=== PATIENT | female | born 1985 | race Caucasian/White ===

== ENCOUNTER 2016-08-03 12:58 | Inpatient (IN) | payer OTHER ==
[~2016-08-03] VITALS: Ht 167.6 cm; Wt 131.2 kg
[2016-08-03 13:05] VITALS: Ht 167.6 cm; Wt 131.2 kg
[2016-08-03 13:06] VITALS: BP 144/88; PULSE 106; RESP 18
--- NOTE | 2016-08-03 14:18 | RADRPT ---
PROCEDURE: US OB. CLINICAL INDICATION: SROM , pain TECHNIQUE: Transabdominal views of the pelvis are available for review. COMPARISON: No prior studies are available for comparison. FINDINGS: There is a single intrauterine gestation in a vertex position. The heart rate is present at 137 bpm. The placenta is anterior. The PAPA measures 9.4 cm. RPTAT: AA IMPRESSION: Normal PAPA. .Ata Chilel MD, MD Date Time Electronically viewed and signed by .Ata Chilel MD, MD on 08/03/2016 14:18 .S/
[2016-08-03 15:13] LABS: ADD SCAN DIFF NO
[2016-08-03 15:27] LABS: INR 0.92; PROTIME 12.4 Sec (12.2-14.2)
[2016-08-03 15:28] LABS: PARTIAL THROMBOPLASTIN TIME 26.2 Sec (25.0-35.0)
--- NOTE | 2016-08-03 15:35 | HP ---
Date/Time of Note Date/Time of Note DATE: 08/03/16 TIME: 15:32 OB - History Hx of Present Free Text/Dictation 31yo G1 at 39+1 presented to triage c/o leakage of fluid starting at 0845 followed by painful UCs at around 1000. Pt reports normal FM. States she has had some vaginal bleeding since exam in clinic. Denies CALDERON, visual changes or RUQ pain. PROCEDURE: US OB. CLINICAL INDICATION: SROM , pain TECHNIQUE: Transabdominal views of the pelvis are available for review. COMPARISON: No prior studies are available for comparison. FINDINGS: There is a single intrauterine gestation in a vertex position. The heart rate is present at 137 bpm. The placenta is anterior. The PAPA measures 9.4 cm. RPTAT: AA IMPRESSION: Normal PAPA. Estimated Due Date: Aug 09, 2016 : 1 Care: Good Care Obstetrical Complications: None Medical Complications: None Past Family/Social History * Past Medical, Surgical, Family and Obstetric Histories reviewed from chart. Blood Type: O+ Rubella: unknown (unclear writing on record) GBS Status: Negative HBsAG: Negative OB Admission Exam Vital Signs Vital Signs Vital Signs Date Time Temp Pulse Resp B/P Pulse Ox O2 Delivery O2 Flow Rate FiO2 08/03/16 13:06 98.2 106 18 144/88 Room Air BPs 140s/70s-80s 116/58 Physical Exam HEENT: WNL Heart: Rhythm Normal Lungs: Clear Abdomen: WNL Extremities: Normal Reflexes: Normal (2+) Cervical Dilatation: 1cm Effacement: Other (40%) Station: -3 Membranes: Ruptured (nitrazine positive, ROM plus positive) Amniotic Fluid: Clear Heart Rate: 130's Accelerations: Accelerations Present Decelerations: Variable Decelerations (to 110s x1) Varibility: Moderate Contractions on Admission: < 5 Minutes Apart (q4-6 minutes) Intensity: Mild OB Assessment/Plan Reason for admission: rupture of membranes Other Assessment: Term PROM Early labor Elevated BPs Plan: Induction Induction Method: per Pitocin Protocol Other plan: 1)Labor: Begin IOL in the setting of term PROM 2)FWB: Reassuring, CEFM 3)Elevated BPs: Given mild range BPs, no symptoms and no e/o Preeclampsia, will defer Magnesium Sulfate at this point and continue monitoring BPs and sxs 4)ID: ROM x7Hrs, afebrile. Minimize SVEs to decrease infectious risk. GBS negative, ppx not indicated. 5)Pain: Meds prn Plan for IOL discussed with pt as well as expectations for induction. Questions answered to patient and partner's satisfaction. Dr. Obrien aware of plan to admit and to induce SANA CAIN MD Aug 03, 2016 15:35
[2016-08-03 15:44] LABS: BASOPHILS % 0.2 % (0.0-2.0); EOSINOPHILS # 0.1 10^3/ul (0.0-0.5); EOSINOPHILS % 0.8 % (0.0-7.0); HEMATOCRIT 39.2 % (37.0-47.0); HEMOGLOBIN 13.2 g/dl (12.0-16.0); LYMPHOCYTES % 17.7 % (15.0-51.0); MEAN CORPUSCULAR HEMOGLOBIN 29.3 pg (29.0-33.0); MEAN CORPUSCULAR HGB CONC 33.7 g/dl (32.0-37.0); MEAN CORPUSCULAR VOLUME 87.1 fl (82.0-101.0); MEAN PLATELET VOLUME 10.1 fl (7.4-10.4); MONOCYTE # 0.7 10^3/ul (0.3-0.9); MONOCYTES % 6.4 % (0.0-11.0); NEUTROPHIL # 8.3 10^3/ul (1.6-7.5); NEUTROPHILS % 74.2 % (39.0-77.0); PLATELET COUNT 238 10^3/UL (140-415); RED CELL DISTRIBUTION WIDTH 15.6 % (11.5-14.5); WHITE BLOOD COUNT 11.2 10^3/ul (4.8-10.8)
[2016-08-03 15:45] LABS: ADD UMIC YES; URINE BILIRUBIN (Dip) NEGATIVE (NEGATIVE); URINE BLOOD (Dip) 3+ (NEGATIVE); URINE GLUCOSE (Dip) NEGATIVE (NEGATIVE); URINE KETONES (Dip) NEGATIVE (NEGATIVE); URINE LEUKOCYTE ESTERASE (Dip) 1+ (NEGATIVE); URINE NITRITE (Dip) NEGATIVE (NEGATIVE); URINE TOTAL PROTEIN (Dip) NEGATIVE (NEGATIVE); URINE UROBILINOGEN (Dip) 0.2 E.U./dL (0.1-1.0)
[2016-08-03 15:53] LABS: URINE COLOR YELLOW (YELLOW)
[2016-08-03 15:56] LABS: ALBUMIN 3.3 g/dl (3.3-4.9)
[2016-08-03 15:57] LABS: POTASSIUM 4.3 mmol/L (3.5-5.1)
[2016-08-03 15:59] LABS: CREATININE 0.72 mg/dl (0.44-1.00); TOTAL PROTEIN 6.6 g/dl (6.1-8.1)
[2016-08-03 16:00] LABS: CALCIUM 9.8 mg/dl (8.4-10.2)
[2016-08-03] MEDS: OXYTOCIN 30 UNITS/LR 500 ML IV SCH ×2 (16:00→20:00)
[2016-08-03] MEDS ORDERED: LIDOCAINE 1% (MPF) 30 ML INJ INJ PRN (16:00)
[2016-08-03] MEDS ORDERED: OXYTOCIN 30 UNITS/LR 500 ML IV PRN (16:00)
[2016-08-03] MEDS ORDERED: CARBOPROST 250 MCG INJ IM PRN (16:00)
[2016-08-03] MEDS ORDERED: LACTATED RINGER'S 1,000 ML IV PRN (16:00)
[2016-08-03] MEDS ORDERED: MISOPROSTOL 200 MCG TAB PR PRN (16:00)
[2016-08-03] MEDS ORDERED: METHYLERGONOVINE 0.2 MG INJ IM PRN (16:00)
[2016-08-03] MEDS ORDERED: OXYTOCIN 30 UNITS/LR 500 ML IV SCH (16:00)
[2016-08-03 16:01] LABS: BACTERIA,URINE FEW; SQUAMOUS EPITHELIAL CELL,UR MANY; URINE RBCS 25-50 /HPF (0)
--- NOTE | 2016-08-03 16:43 | TRIAGE ---
OB Triage Datetime Report Generated by CPN: 08/03/2016 16:43 Datetime: 08/03/2016 16:29 Assessment Type: Admission Assessment Vaginal Bleeding: None Maternal Assessment Level of Consciousness: Fully Conscious DTR's/Clonus: DTRs 2+; No Clonus Headache: Denies Blurred Vision: No Respiratory Effort: Unlabored; Regular Rhythm; Equal Expansion Breath Sounds, Left: Clear and Equal Breath Sounds, Right: Clear and Equal Nausea/Vomiting: Denies RUQ Epigastric Pain: Denies Lower Extremities Edema: Bilateral Lower Extremities Degree: 2+ Upper Extremities Edema: Bilateral Upper Extremities Degree: 2+ Facial Edema: None Fall Risk Assessment History of Falling: (0) No Secondary Diagnosis: (0) No Ambulatory Aid: (0) Bedrest/Nurse Assist IV Therapy: (0) No Gait: (0) Normal/Bedrest/Immobile Mental Status: (0) Oriented to Own Ability Labor Evaluation Frequency: 4-6 Duration (sec)2399: 70-120 Quality: Mild Pattern: Normal: <= 5 Contractions in 10 Minutes Resting Tone Peak: Relaxed Pain Assessment Pain Presence: Intermittent Pain Type: Cramping Pain Location: Abdomen Membrane Status: Ruptured Membranes Ruptured Date/Time: 08/03/2016 08:45 Membranes Rupture Method: Spontaneous Amniotic Fluid Color: Clear Amniotic Fluid Amount: Small Amniotic Fluid Odor: Normal ROM Test Kit: Positive Datetime: 08/03/2016 15:42 Labor Evaluation Frequency: 3-6 Monitor Mode: External Duration (sec)2399: 60-120 Quality: Moderate Pattern: Normal: <= 5 Contractions in 10 Minutes Resting Tone Peak: Relaxed Datetime: 08/03/2016 15:35 Labor Evaluation Frequency: 3-4 Monitor Mode: External Duration (sec)2399: 60-80 Quality: Mild Pattern: Normal: <= 5 Contractions in 10 Minutes Resting Tone Peak: Relaxed Heart Rate FHR Baseline Rate: 130 Monitor Mode: External US FHR Baseline Changes: No Baseline Change Variability: Moderate 6-25 bpm Accelerations: 15X15 Decelerations: None Category: Category I Datetime: 08/03/2016 14:28 Labor Evaluation Frequency: IRREG Monitor Mode: External Duration (sec)2399: 70-80 Quality: Mild Pattern: Normal: <= 5 Contractions in 10 Minutes Resting Tone Peak: Relaxed Heart Rate FHR Baseline Rate: 140 Monitor Mode: External US FHR Baseline Changes: No Baseline Change Variability: Moderate 6-25 bpm Accelerations: 15X15 Decelerations: None Category: Category I Datetime: 08/03/2016 13:26 Labor Evaluation Frequency: 10-12 Monitor Mode: External Duration (sec)2399: 70 Quality: Mild Pattern: Normal: <= 5 Contractions in 10 Minutes Resting Tone Peak: Relaxed Heart Rate FHR Baseline Rate: 140 Monitor Mode: External US FHR Baseline Changes: No Baseline Change Variability: Moderate 6-25 bpm Accelerations: 15X15 Decelerations: None Category: Category I Pain Assessment Pain Presence: None/Denies Datetime: 08/03/2016 13:21 Vaginal Exam Dilatation (cms): 1.0 Effacement (%): 40 Station: -3 Exam By: MJ Datetime: 08/03/2016 13:20 Nitrazine: Negative Datetime: 08/03/2016 13:09 Stage of : OB Triage Time of Arrival: 08/03/2016 16:13 EGA: 39.1 Arrived By: Ambulatory Arrived From: Home Maternal Assessment Level of Consciousness: Fully Conscious DTR's/Clonus: DTRs 2+; No Clonus Headache: Denies Blurred Vision: No Respiratory Effort: Unlabored; Regular Rhythm; Equal Expansion Breath Sounds, Left: Clear and Equal Breath Sounds, Right: Clear and Equal Nausea/Vomiting: Denies RUQ Epigastric Pain: Denies Lower Extremities Edema: Bilateral Lower Extremities Degree: None Upper Extremities Edema: Bilateral Upper Extremities Degree: None Facial Edema: None Temperature Route: Oral Fall Risk Assessment History of Falling: (0) No Secondary Diagnosis: (0) No Ambulatory Aid: (0) Bedrest/Nurse Assist IV Therapy: (0) No Gait: (0) Normal/Bedrest/Immobile Datetime: 08/03/2016 13:07 Time of Arrival: 08/03/2016 12:54 Arrived By: Ambulatory Arrived From: Home Chief Complaint: UCS WITH RUPTURE OF MEMBRANES Movement: Present Contractions: Irregular Time Contractions Began: 08/03/2016 09:48 Contractions: 3-8 Rupture of Membranes: Ruptured Vaginal Bleeding: None Vaginal Discharge: Denies Recent Sexual Intercouse: Denies Abdominal Trauma: Not Applicable Patient Complaints: Contractions; Other Additional Patient Complaints: SROM AT 0845 Time Provider Notified: 08/03/2016 13:30 Provider Notified: RICHIE Initial Plan: MONITOR, V/S MONITOR, NOTIFIY OB FOR FURTHER ORDERS
[2016-08-03] MEDS ORDERED: BUTORPHANOL 2 MG INJ IV PRN (17:00)
[2016-08-03] MEDS: LACTATED RINGER'S 1,000 ML IV SCH (17:12)
[2016-08-03 17:24] LABS: URIC ACID 4.7 mg/dl (3.1-7.9)
[2016-08-03] MEDS ORDERED: AMPICILLIN 2 GM/NS (PMX) 100 ML ONE (21:19)
[2016-08-03] MEDS ORDERED: AMPICILLIN 2 GM/NS (PMX) 100 ML IVPB ONE (21:30)
[2016-08-03] MEDS ORDERED: FENTAnyl 2MCG/ML-ROPIV 0.2% 100 ML ONE (22:29)
[2016-08-03] MEDS ORDERED: TERBUTALINE 1 ML ONE (23:40)
[2016-08-04] MEDS: LACTATED RINGER'S 1,000 ML IV SCH ×4 (00:49→17:34)
[2016-08-04] MEDS: AMPICILLIN 1 GM/NS (PMX) 50 ML IVPB SCH ×4 (00:52→13:00)
[2016-08-04] MEDS ORDERED: ONDANSETRON 4 MG INJ ONE (02:46)
[2016-08-04] MEDS ORDERED: ONDANSETRON 4 MG INJ IV PRN ×3 (03:30→14:30)
[2016-08-04] MEDS: OXYTOCIN 30 UNITS/LR 500 ML IV SCH ×3 (04:00→08:00)
[2016-08-04] MEDS ORDERED: DIPHENHYDRAMINE 50 MG INJ IV PRN ×2 (04:00→14:30)
[2016-08-04] MEDS ORDERED: NALOXONE (0.4 MG/ML) INJ IV PRN ×2 (04:00→14:30)
[2016-08-04] MEDS: FENTAnyl 2MCG/ML-ROPIV 0.2% 100 ML BAG EPI SCH ×2 (04:22→11:10)
[2016-08-04] MEDS ORDERED: LACTATED RINGER'S 1,000 ML IV ONE (11:48)
[2016-08-04] MEDS ORDERED: CITRIC ACID/NA CITRATE 30 ML CUP ONE (11:50)
[2016-08-04] MEDS ORDERED: FENTAnyl 50 MCG/ML VIAL ONE (11:58)
[2016-08-04] MEDS ORDERED: morphine SULFATE/PF (10 MG/10 ML) INJ ONE (11:58)
[2016-08-04] MEDS ORDERED: CEFAZOLIN 1 GM INJ ONE (11:59)
[2016-08-04] MEDS ORDERED: CEFAZOLIN 2 GM/50 ML (PMX) 50 ML IV SCH (12:00)
[2016-08-04] MEDS ORDERED: ONDANSETRON 4 MG INJ IV ONE (12:00)
[2016-08-04] MEDS ORDERED: CITRIC ACID/NA CITRATE 30 ML CUP PO ONE (12:00)
[2016-08-04] MEDS ORDERED: CHLOROPROCAINE 3% (MPF) 20 ML INJ ONE (12:00)
[2016-08-04] MEDS ORDERED: METOCLOPRAMIDE 10 MG INJ ONE (12:42)
[2016-08-04] MEDS ORDERED: BUPIVACAINE 0.25% (MPF) 30 ML INJ ONE (12:50)
[2016-08-04] MEDS: IBUPROFEN 800 MG TAB PO SCH (14:00)
[2016-08-04] MEDS ORDERED: CARBOPROST 250 MCG INJ IM PRN (14:00)
[2016-08-04] MEDS ORDERED: OXYCODONE/ACETAMINOPHEN (5/325) TAB PO PRN ×2 (14:00)
[2016-08-04] MEDS ORDERED: MISOPROSTOL 200 MCG TAB PR PRN (14:00)
[2016-08-04] MEDS ORDERED: OXYTOCIN 30 UNITS/LR 500 ML IV PRN (14:00)
[2016-08-04] MEDS ORDERED: METHYLERGONOVINE 0.2 MG INJ IM PRN (14:00)
[2016-08-04] MEDS ORDERED: LANOLIN 7 GM TUBE TOP PRN (14:00)
[2016-08-04] MEDS ORDERED: PROCHLORPERAZINE 10 MG INJ IV PRN (14:30)
[2016-08-04] MEDS ORDERED: morphine 2 MG INJ IV PRN ×2 (14:30)
[2016-08-04] MEDS: KETOROLAC 30 MG INJ IV PRN ×2 (15:04→21:49)
[2016-08-04 17:00] VITALS: BP 137/77; PULSE 89; RESP 18
[2016-08-04 19:45] VITALS: BP 113/61; PULSE 92; RESP 18
[2016-08-04 23:54] VITALS: BP 115/43; PULSE 102; RESP 16
[2016-08-05] MEDS: LACTATED RINGER'S 1,000 ML IV SCH ×2 (02:04→10:29)
[2016-08-05 03:51] VITALS: BP 122/69; PULSE 104; RESP 18
[2016-08-05] MEDS: KETOROLAC 30 MG INJ IV PRN ×2 (05:29→12:10)
[2016-08-05 06:56] LABS: ADD SCAN DIFF NO
[2016-08-05 07:10] LABS: BASOPHILS % 0.1 % (0.0-2.0); EOSINOPHILS # 0.1 10^3/ul (0.0-0.5); EOSINOPHILS % 0.4 % (0.0-7.0); HEMATOCRIT 33.1 % (37.0-47.0); LYMPHOCYTES # 2.1 10^3/ul (0.8-2.9); MEAN CORPUSCULAR HEMOGLOBIN 29.6 pg (29.0-33.0); MEAN CORPUSCULAR HGB CONC 33.2 g/dl (32.0-37.0); MEAN CORPUSCULAR VOLUME 89.2 fl (82.0-101.0); MONOCYTE # 0.8 10^3/ul (0.3-0.9); MONOCYTES % 5.9 % (0.0-11.0); NEUTROPHIL # 10.9 10^3/ul (1.6-7.5); NEUTROPHILS % 77.9 % (39.0-77.0); PLATELET COUNT 192 10^3/UL (140-415); RED BLOOD COUNT 3.71 10^6/ul (4.20-5.40); RED CELL DISTRIBUTION WIDTH 15.9 % (11.5-14.5)
[2016-08-05 07:50] VITALS: BP 118/66; PULSE 101; RESP 18
[2016-08-05] MEDS: IBUPROFEN 800 MG TAB PO SCH ×2 (14:00→21:42)
[2016-08-05 15:54] VITALS: BP 126/77; PULSE 91; RESP 18
[2016-08-05 19:50] VITALS: BP 107/58; PULSE 94; RESP 21
--- NOTE | 2016-08-05 22:31 | QN ---
Documentation Comment On 08/04 , follow-up with the nurse early in the morning indicated the pt was 6-7 cm dilated. Then at 0730 she was 8 cm dilated and pitocin was reinitiated, having been stopped earlier. At 11 AM the pt was still the same and the head was still high and the membranes had been ruptured now x 28 hours and the heart tracing was beginning to get flat with decreased variability. I came in to evaluate the pt and after reviewing the tracing and examining the pt and speaking to the patient decided to proceed to a primary for failure to progress and non-reassuring heart tracing. Consent was signed and patient was prepped and brought to the OR. DANILO QUIROZ MD Aug 05, 2016 22:31
--- NOTE | 2016-08-05 22:31 | QN ---
Documentation Comment POD #1 S/P primary C/S. Pt in good spirits.Excellent pain management. Was only given clear liquids for dinner and has crackers now? Struggled with breast feeding even with the help of the proposal consultant and the nipple nation didn't work so has to pump and then feed the baby. Is also supplementing for now as the baby was getting very hungry while they were trying to figure out the . T=98.6. BP 107/58. Fundus firm. Incision clean,dry and intact. Loachia moderate. Extremities 3+ edema, NT. WBC 14.0 Hgb 11.0. P: Continue care. Advance diet. Encourage ambulation. D/C planned for Monday 08/07. DANILO QUIROZ MD Aug 05, 2016 22:31
--- NOTE | 2016-08-05 23:05 | OPR ---
DATE OF OPERATION: 08/04/2016 PREOPERATIVE DIAGNOSIS: Failure to progress and nonreassuring status. POSTOPERATIVE DIAGNOSES 1. Failure to progress and nonreassuring status. 2. Occiput posterior presentation 3. Status post delivery of a viable female weighing 3480 g or 7 pounds 11 ounces with scores of 9 and 9. OPERATION PERFORMED: Primary low transverse section. SURGEON: Esvin Obrien MD ANESTHESIA: Dr. Lieberman with an epidural. ESTIMATED BLOOD LOSS: 500 mL. COMPLICATIONS: None. DESCRIPTION OF PROCEDURE: The patient was brought to the operating room, placed on the operating table and additional medication was given through her epidural to provide anesthesia adequate for surgery. She had a Multani catheter already. She was then prepped and draped in the usual sterile fashion. A Pfannenstiel incision was made using a knife through the skin and subcutaneous tissue down to the level of fascia. Fascia was incised and extended bilaterally using Bovie cautery and stretching with the surgeon's hands. The superior edge of the incision was grasped with Mary clamps and the rectus muscles were from the overlying fascia using blunt dissection and Bovie cautery. This was repeated at the lower edge of the incision as well. The rectus muscles were in midline with the surgeon's fingers and the anterior peritoneum was easily entered. The incision was then stretched open with hands. A bladder blade and Farrell retractor were placed in the incision. Bladder flap was developed with Metzenbaum scissors and blunt dissection. The lower uterine segment was incised with a knife, trying to stay high and entered with a Shila clamp. The incision then needed to be cut with bandage scissors. Of note, lower uterine segment was still quite thick. Fluid was clear. The head was quite elongated and the top of the head was down low. It took a little bit of effort to bring it up. The baby was occiput posterior presentation. Once the caput was brought up the mouth and nares were bulb suctioned and the rest of the baby was then easily delivered. The cord was doubly clamped and cut and the baby was brought over to the warmer with the respiratory team in attendance. Cord blood was obtained. The placenta was manually extracted. Uterus was externalized, wrapped in a moist lap and a dry lap was used to clean the interior of the uterus. The incision was closed in 2 layers using #1 chromic in a running locking stitch with excellent tissue approximation and hemostasis. The pelvis was irrigated well. The uterus was replaced back into the abdomen after noting that tubes and ovaries were normal. The incision was examined again and noted to be dry. The anterior peritoneum was then closed using 2-0 chromic in a running stitch. The rectus muscles were brought back together at midline with interrupted [id number] sutures of the same material. The underbelly of the fascia was examined and noted to be dry. Fascia was then closed using 0 Vicryl suture in a running stitch from each lateral edge to midline with overlap at the midline. Subcutaneous layer was irrigated well, cautery applied where needed for hemostasis. The subcutaneous layer was closed with 2-0 chromic in a running stitch. The skin was then closed with 3-0 Monocryl in a subcuticular stitch with excellent tissue approximation and hemostasis. Steri-Strips with Mastisol were placed and a pressure dressing was applied overall. Procedure was terminated. Uterus was expressed and the patient was brought to the recovery room in excellent condition. Dictated By: ESVIN PHOENIX/TAMIKA Conf#: [id number] DID#: [id number] SHAYY
[2016-08-06 03:30] VITALS: BP 115/56; PULSE 88; RESP 19
[2016-08-06] MEDS: IBUPROFEN 800 MG TAB PO SCH ×3 (05:20→21:53)
[2016-08-06 08:00] VITALS: BP 105/57; PULSE 95; RESP 18
[2016-08-06 16:00] VITALS: BP 121/44; RESP 17
[2016-08-06 19:35] VITALS: BP 104/57; PULSE 96; RESP 16
--- NOTE | 2016-08-06 21:54 | QN ---
Documentation Comment POD #2. Pt is doing well, pumping. Tolerating a regular diet. T=97.9 BP 121/44 Incision C/D/I. Lochia minimal. Extremities NT, 2+ edema. P: Continue care and plan d/c tomorrow. DANILO QUIROZ MD Aug 06, 2016 21:54
[2016-08-07 04:20] VITALS: BP 128/68; PULSE 86; RESP 16
[2016-08-07] MEDS: IBUPROFEN 800 MG TAB PO SCH ×2 (05:46→13:44)
[2016-08-07 07:45] VITALS: BP 132/72; RESP 17
[2016-08-07] MEDS ORDERED: DIPHTH/TET/ACEL PERTUSS (ADULT) 0.5 ML VIAL IM* ONE (09:00)
--- NOTE | 2016-08-07 14:03 | PD.PPDC ---
WHIPPER Discharge Instruction Condition Patient Condition: Good Diet Diet: Resume Regular Diet Activity/Restrictions Activity: Bedrest May be up to bathroom May be up for meals May Shower Restrictions: No Exercising No Lifting No Driving Minimize Walking Minimize Stair-climbing No Sexual Activity Nothing in the Vagina No [place] No Tampons, douche Wound/Drain Care Instructions Wound/Drain Care Instructions: Remove Steri Strips in 2 weeks Keep clean and dry Follow-up Follow-up with Physician: 2, Week/Weeks Return to clinic for CENTRAL SUPPLY AIDE Instructions: Fever greater than 101 Chills Worsening abdominal pain Excessive Vaginal Bleeding OB Instructions: Breast Tenderness Depression Surgical Instructions: Incisional Drainage Incisional Redness DANILO QUIROZ MD Aug 07, 2016 14:03
--- NOTE | 2016-08-07 14:07 | DS ---
Date/Time of Note Date/Time of Note DATE: 08/07/16 TIME: 14:04 Obstetrical Discharge Record Final Diagnosis Final Diagnosis: Term delivered Section Section: Primary Primary Indication Failure to progress, non-reassuring status. Complications Augmentation: Yes Induction: No Condition on Discharge Physical Assessment Last Vitals: T=97.3 BP 132/72 Voiding: Yes Bowel Movement: Yes Breast: Filling Fundus: Firm Abdomen and Incision: Incision clean, dry and intact. Calf Tenderness: No Patient Condition: Good DANILO QUIROZ MD Aug 07, 2016 14:07
== END 2016-08-07 18:00 | disposition home or self-care (01) | DRG 765 ==
LOC: OBT 12:58 → L-D 12:58 → OBT 16:00 → L-D 16:00 → PP1 08-04 17:12
PROVIDERS: ADMIT Obstetrics & Gynecology; ATTEND Obstetrics & Gynecology
PROC: 10D00Z1 Extraction of Products of Conception, Low, Open Approach (ICD-10-PCS; principal; 2016-08-04 12:30)
PROC: 3E00X4Z Introduction of Serum, Toxoid and Vaccine into Skin and Mucous Membranes, External Approach (ICD-10-PCS; 2016-08-07)
DX: O99.214 Obesity complicating childbirth (principal); Z68.42 Body mass index [BMI] 45.0-49.9, adult; O16.4 Unspecified maternal hypertension, complicating childbirth; E66.01 Morbid (severe) obesity due to excess calories; O62.0 Primary inadequate contractions; Z23 Encounter for immunization; O76 Abnormality in fetal heart rate and rhythm complicating labor and delivery; Z3A.39 39 weeks gestation of pregnancy; Z37.0 Single live birth
CPT/HCPCS: 62319; 76815; 80053; 81001; 81003; 84112; 84560; 85025; 85610; 85730; 86592; 86703; 86885; 86900; 86901; 87340; 90715; 94760; 99464; J2400; J0290; J0690; J1200; J1885; J2274; J2405; J2590; J2765; J3010; J3105; J7120